=== PATIENT | female | born 1970 | race Caucasian/White ===

== ENCOUNTER 2019-01-09 14:00 | Emergency (ER) | payer OTHER ==
[~2019-01-09] VITALS: Ht 170.2 cm; Wt 86.6 kg
[2019-01-09 18:11] VITALS: BP 101/43
== END 2019-01-09 18:29 | disposition home or self-care (01) ==
LOC: ER 14:00
DX: G43.109 Migraine with aura, not intractable, without status migrainosus (principal); R11.10 Vomiting, unspecified; Z88.5 Allergy status to narcotic agent

== ENCOUNTER 2019-06-22 14:13 | Emergency (ER) | payer OTHER ==
[~2019-06-22] VITALS: Ht 170.2 cm; Wt 78.0 kg
[2019-06-22] MEDS ORDERED: DEPAKOTE ER250 MG PO (14:28)
[2019-06-22] MEDS ORDERED: ZYRTEC10 M5 PO (14:29)
[2019-06-22] MEDS ORDERED: VERAPAMIL E.R240 M1 PO (14:29)
[2019-06-22] MEDS ORDERED: TRAZODONE HCL100 MG PO (14:29)
[2019-06-22] MEDS ORDERED: OMEPRAZOLE 20 M20 M1 PO (14:29)
[2019-06-22] MEDS ORDERED: BENADRYL25 MG PO (14:30)
[2019-06-22] MEDS ORDERED: NORCO 5-325 TA1 EAC1 PO (15:43)
[2019-06-22] MEDS ORDERED: ONDANSETRON HCL4 M2 PO (15:46)
[2019-06-22 15:51] VITALS: BP 124/68
--- NOTE | 2019-06-23 07:47 | EKG ---
[place] [address] [facility] [place] [address] ELECTROCARDIOGRAM REPORT Name: ZACH QUEVEDO Room #: DEP [facility]#: [id number] ������������������ Admission: 06/22/19 ������������������ Attend Phys: Discharge: 06/22/19 ������������������ Date of : 68 Report #: [id number] ����������������������������������������������������������������� [id number] THIS REPORT FOR: //name// [facility] ED Test Date: 2019-06-22 Test Time: 14:21:22 Pat Name: ZACH QUEVEDO Department: Room: Gender: F Front Office Clerk: SEAN : 1970 Requested By: Niels Devine Order Number: [id number] MD: Theo Montez Measurements Intervals Tea Rate: 87 P: 56 KS: 145 QRS: 1 QRSD: 97 T: 38 QT: 385 QTc: 463 Interpretive Statements Sinus rhythm Inferior infarct, old Baseline wander in lead(s) I,II,aVR No previous ECG available for comparison Electronically Signed On 06-23-2019 7:46:54 CDT by Theo Montez [email or web address] ��������������������������������������������� <ELECTRONICALLY SIGNED> ���������������������������������������� By: Theo Montez MD, [facility] ��������������������������������������������� 06/23/19 0746 D: [id number] 20 Theo Montez MD, [facility] /EPI
== END 2019-06-22 16:07 | disposition home or self-care (01) ==
LOC: ER 14:13
DX: S06.0X1A Concussion with loss of consciousness of 30 minutes or less, initial encounter (principal); R11.2 Nausea with vomiting, unspecified; G43.909 Migraine, unspecified, not intractable, without status migrainosus; Z88.6 Allergy status to analgesic agent; W18.09XA Striking against other object with subsequent fall, initial encounter; Y93.89 Activity, other specified; Y92.89 Other specified places as the place of occurrence of the external cause; Y99.8 Other external cause status